=== PATIENT | male | born 1955 | race Caucasian/White ===

== ENCOUNTER 2016-07-12 20:24 | Emergency (ER) | payer OTHER ==
[~2016-07-12] VITALS: Ht 185.4 cm; Wt 172.4 kg
[~2016-07-12 20:24] MED LIST: ADVAIR HFA120 INHAL1 IH; ASCORBIC ACID500 M3 PO; Advair 250/50 Diskus IH; Ascorbic Acid,Ester- PO; COUMADIN1 MG PO; COUMADIN5 MG PO; Colace PO; DOCUSATE SODIU100 MG PO; Dulcolax PO; Ecotrin PO; FOLIC ACID1 MG PO; GLUCOPHAGE XR750 MG PO; Glucophage PO; LIDODERM 5% P1 PATCH TD; LOVENOX100 MG/1 M SC; LOVENOX30 MG/0.3 SC; MS Contin,Oramorph S PO; MULTIPLE VITAM1 EAC1 PO; NORVASC10 MG PO; Norvasc PO; OXYCODONE HCL10 MG PO; OXYCODONE HCL5 MG PO; OXYCONTIN10 MG PO; PEPCID20 MG PO; PERCOCET 5/31 TABLET PO; POLYETHYLENE GL17 GM PO; PRAVACHOL40 MG PO; PREDNISONE20 MG PO; PRILOSEC20 MG PO; Pravachol PO; PriLOSEC PO; SENNA-TIME S T1 EACH PO; Senokot S,Pericolace PO; TEARS NATURALE-15 ML BOTH EYES; Theragran PO; oxyCODONE PO
[2016-07-12 22:32] LABS: HEMATOCRIT 41.6 % (38.0-50.0); MCH 30.7 PG (29.0-34.0); MCHC 33.4 G/DL (30.0-36.0); MCV 91.8 FL (86-99); MEAN PLAT.VOLUME 10.1 uM^3 (9.0-12.4); PLATELET COUNT 184 K/uL (156-360); RBC DIS.WIDTH-CV 13.8 % (11.8-14.6); RBC DIS.WIDTH-SD 46.6 % (39-53); RED BLOOD COUNT 4.53 M/uL (4.00-5.50); WHITE BLOOD COUNT 10.4 K/uL (4.1-10.2)
[2016-07-12 22:44] LABS: CHLORIDE 108 mEq/L (99-109); POTASSIUM 3.7 mEq/L (3.7-5.4); SODIUM 141 mEq/L (136-147)
[2016-07-12 22:45] LABS: GLUCOSE 130 mg/dL (70-99)
[2016-07-12 22:46] LABS: PROTHROMBIN TIME 32.1 (9.2-11.2); PTT 39.8 (25-32)
[2016-07-12 22:47] LABS: ANION GAP 12 MEQ/L (2-14)
[2016-07-12 22:49] LABS: GFR ESTIMATE (CALCULATED) > 59 mL/min/
[2016-07-12 22:50] LABS: UREA NITROGEN (BUN) 16 mg/dL (9-23)
[2016-07-13 00:33] VITALS: BP 126/61
== END 2016-07-13 00:34 | disposition home or self-care (01) ==
LOC: EME 20:24
PROVIDERS: Emergency Medicine
DX: S90.221A Contusion of right lesser toe(s) with damage to nail, initial encounter (principal); S90.211A Contusion of right great toe with damage to nail, initial encounter; X58.XXXA Exposure to other specified factors, initial encounter; E11.9 Type 2 diabetes mellitus without complications; Z79.84 Long term (current) use of oral hypoglycemic drugs; Z86.718 Personal history of other venous thrombosis and embolism; Z79.01 Long term (current) use of anticoagulants; I10 Essential (primary) hypertension; E78.5 Hyperlipidemia, unspecified; Z87.891 Personal history of nicotine dependence
CPT/HCPCS: 73630; 80048; 85027; 85610; 85730; 99281; 99284

== ENCOUNTER 2016-09-26 10:55 | Day surgery (SDC) | payer OTHER ==
[~2016-09-26] VITALS: Ht 185.4 cm; Wt 168.3 kg
[~2016-09-26 10:55] MED LIST changes: +ADVAIR 100/501 DISK IH; +DIOVAN80 MG PO; +FIBER GUMMIES1 EACH PO; +GLUCOPHAGE850 MG PO; +HYDROCODON-ACE1 EAC7 PO; +MEN 50 PLUS MU1 EACH PO; +NATURAL BALANCE15 M1 BOTH EYES; +VITAMIN C500 M1 PO
[2016-09-26 11:22] LABS: INTER. NORMALIZED RATIO 1.1
[2016-09-26 11:25] LABS: PTT 28.7 SEC (25-37)
[2016-09-26 11:47] LABS: POINT-OF-CARE METER ID UU13113694
[2016-09-26 12:29] VITALS: BP 135/70
[2016-09-26 14:26] LABS: POINT-OF-CARE METER ID UU13113675; POINT-OF-CARE USER ID ADMKMM76
[2016-09-26 15:50] VITALS: BP 125/93
[2016-09-26 16:45] VITALS: BP 128/61
== END 2016-09-26 16:51 | disposition home or self-care (01) ==
LOC: SDC 10:55
PROVIDERS: Urology
PROC: 0VTTXZZ Resection of Prepuce, External Approach (ICD-10-PCS; principal; 2016-09-26)
DX: N47.1 Phimosis (principal); Q55.64 Hidden penis; E66.01 Morbid (severe) obesity due to excess calories; Z68.42 Body mass index [BMI] 45.0-49.9, adult; I10 Essential (primary) hypertension; E11.9 Type 2 diabetes mellitus without complications; J45.909 Unspecified asthma, uncomplicated; Z82.49 Family history of ischemic heart disease and other diseases of the circulatory system; Z86.711 Personal history of pulmonary embolism; Z88.0 Allergy status to penicillin; Z87.891 Personal history of nicotine dependence; Z79.01 Long term (current) use of anticoagulants; Z79.84 Long term (current) use of oral hypoglycemic drugs
CPT/HCPCS: 82948; 85610; 85730; 93005; J1170; J1956; J2250; J3010

== ENCOUNTER 2016-10-15 17:21 | Emergency (ER) | payer OTHER ==
[~2016-10-15] VITALS: Ht 185.4 cm; Wt 174.5 kg
[2016-10-15 18:59] LABS: HEMATOCRIT 41.9 % (38.0-50.0); MCH 30.6 PG (29.0-34.0); MCHC 33.7 G/DL (30.0-36.0); MCV 90.9 FL (86-99); PLATELET COUNT 192 K/uL (156-360); RBC DIS.WIDTH-CV 13.3 % (11.8-14.6); RBC DIS.WIDTH-SD 44.7 % (39-53); RED BLOOD COUNT 4.61 M/uL (4.00-5.50)
[2016-10-15 19:07] LABS: INTER. NORMALIZED RATIO 2.2
[2016-10-15 19:12] LABS: PROTHROMBIN TIME 24.7 SEC (10.2-12.9)
[2016-10-15 19:20] LABS: CHLORIDE 105 mEq/L (99-109); SODIUM 141 mEq/L (136-147)
[2016-10-15 19:21] LABS: GLUCOSE 159 mg/dL (70-99)
[2016-10-15 19:23] LABS: ANION GAP 12 MEQ/L (2-14)
[2016-10-15 19:25] LABS: GFR ESTIMATE (CALCULATED) > 59 mL/min/
[2016-10-15 19:26] LABS: UREA NITROGEN (BUN) 16 mg/dL (9-23)
[2016-10-15 19:52] VITALS: BP 157/70
== END 2016-10-15 19:53 | disposition home or self-care (01) ==
LOC: EME 17:21
PROVIDERS: Nurse Practitioner Family
DX: H53.2 Diplopia (principal); I10 Essential (primary) hypertension; E78.5 Hyperlipidemia, unspecified; E11.9 Type 2 diabetes mellitus without complications; Z79.84 Long term (current) use of oral hypoglycemic drugs; Z79.01 Long term (current) use of anticoagulants; Z86.718 Personal history of other venous thrombosis and embolism; Z87.891 Personal history of nicotine dependence
CPT/HCPCS: 70450; 80048; 85027; 85610; 99281; 99284

== ENCOUNTER 2017-03-21 15:10 | Emergency (ER) | payer OTHER ==
[~2017-03-21] VITALS: Ht 185.4 cm; Wt 173.4 kg
[2017-03-21 18:14] LABS: BASOPHIL (%) 0.7 % (0-1); BASOPHIL COUNT 0.1 K/uL (0-0.1); EOSINOPHIL (%) 2.5 % (0-5); EOSINOPHIL COUNT 0.3 K/uL (0-0.3); HEMOGLOBIN 14.7 G/DL (12.5-16.6); IMMATURE GRANULOCYTE (%) 1.2 % (0.0-0.7); LYMPHOCYTE (%) 26.2 % (15-42); MCH 30.7 PG (29.0-34.0); MCHC 34.2 G/DL (30.0-36.0); MCV 89.8 FL (86-99); MONOCYTE (%) 9.2 % (3-12); MONOCYTE COUNT 1.1 K/uL (0-0.8); NEUTROPHIL (%) 60.2 % (45-76); NEUTROPHIL COUNT 6.9 K/uL (1.8-6.4); PLATELET COUNT 201 K/uL (156-360); RBC DIS.WIDTH-CV 13.5 % (11.8-14.6); RBC DIS.WIDTH-SD 44.6 % (39-53); RED BLOOD COUNT 4.79 M/uL (4.00-5.50); WHITE BLOOD COUNT 11.4 K/uL (4.1-10.2)
[2017-03-21 18:23] LABS: INTER. NORMALIZED RATIO 2.7
[2017-03-21 18:26] LABS: CHLORIDE 105 mEq/L (99-109); POTASSIUM 4.1 mEq/L (3.7-5.4); PTT 43.5 SEC (25-37); SODIUM 138 mEq/L (136-147)
[2017-03-21 18:28] LABS: GLUCOSE 206 mg/dL (70-99)
[2017-03-21 18:32] LABS: CREATININE 0.8 mg/dL (0.6-1.3); GFR ESTIMATE (CALCULATED) > 59 mL/min/ (58.99-99999)
[2017-03-21 18:33] LABS: UREA NITROGEN (BUN) 15 mg/dL (9-23)
[2017-03-21] MEDS ORDERED: LOVENOX150 MG/1 M SC (18:57)
[2017-03-21 19:22] VITALS: BP 152/73
== END 2017-03-21 19:23 | disposition home or self-care (01) ==
LOC: EME 15:10
PROVIDERS: Physician Assistant
DX: I82.411 Acute embolism and thrombosis of right femoral vein (principal); Z86.718 Personal history of other venous thrombosis and embolism; I10 Essential (primary) hypertension; E11.9 Type 2 diabetes mellitus without complications; J45.909 Unspecified asthma, uncomplicated; E78.5 Hyperlipidemia, unspecified; F41.9 Anxiety disorder, unspecified; F32.9 Major depressive disorder, single episode, unspecified; Z87.891 Personal history of nicotine dependence; Z79.01 Long term (current) use of anticoagulants; Z79.84 Long term (current) use of oral hypoglycemic drugs; Z88.0 Allergy status to penicillin; Z88.1 Allergy status to other antibiotic agents; Z88.6 Allergy status to analgesic agent; Z88.8 Allergy status to other drugs, medicaments and biological substances
CPT/HCPCS: 80048; 85025; 85610; 85730; 93971; 99281; 99284; J1650